=== PATIENT | female | born 1985 | race Caucasian/White ===

== ENCOUNTER 2017-11-18 14:42 | Emergency (ER) | payer MEDICAID ==
[~2017-11-18] VITALS: Ht 162.6 cm; Wt 76.5 kg
[~2017-11-18 14:42] MED LIST: FLUO20CA39 PO; LORA1TAB PO
[2017-11-18 14:49] VITALS: BP 120/62
[2017-11-18] MEDS ORDERED: LORazepam 1 MG tablet PO ONE (14:55)
== END 2017-11-18 15:11 | disposition home or self-care (01) ==
LOC: ER 14:42
DX: F41.9 Anxiety disorder, unspecified (principal); F20.9 Schizophrenia, unspecified; F17.200 Nicotine dependence, unspecified, uncomplicated; Z60.2 Problems related to living alone; Z56.0 Unemployment, unspecified; Z88.8 Allergy status to other drugs, medicaments and biological substances; Z79.899 Other long term (current) drug therapy
CPT/HCPCS: 99284

== ENCOUNTER 2022-07-11 10:13 | Emergency (ER) | payer MEDICAID ==
[~2022-07-11] VITALS: Ht 162.6 cm; Wt 54.5 kg
[2022-07-11] MEDS ORDERED: mupirocin 2% ointment 22GM TP STA (14:59)
[2022-07-11] MEDS ORDERED: LIDOcaine Viscous 15ml cup MM ONE (15:00)
[2022-07-11] MEDS ORDERED: chlorhexidine gluconate 15ml Cup****oral rinse MM ONE (15:00)
[2022-07-11] MEDS ORDERED: ibuprofen 200mg tablet PO ONE (15:00)
[2022-07-11] MEDS ORDERED: IBUP-1984 PO (15:12)
[2022-07-11 15:57] VITALS: BP 132/89
== END 2022-07-11 16:00 | disposition home or self-care (01) ==
LOC: ER 10:14
DX: S01.511A Laceration without foreign body of lip, initial encounter (principal); Z91.041 Radiographic dye allergy status; Z56.0 Unemployment, unspecified; W19.XXXA Unspecified fall, initial encounter; Y93.89 Activity, other specified; Y92.89 Other specified places as the place of occurrence of the external cause; Y99.8 Other external cause status
CPT/HCPCS: 99284

== ENCOUNTER 2023-04-18 08:10 | Emergency (ER) | payer MEDICAID ==
[~2023-04-18] VITALS: Ht 162.6 cm; Wt 63.6 kg
[2023-04-18 08:17] VITALS: BP 157/84; PULSE 103; RESP 16; TEMP 98.2; O2SAT 100
== END 2023-04-18 08:20 | disposition left against medical advice (07) ==
LOC: ER 08:11
DX: R56.9 Unspecified convulsions (principal); Z53.21 Procedure and treatment not carried out due to patient leaving prior to being seen by health care provider
CPT/HCPCS: 99281

== ENCOUNTER 2023-04-18 12:48 | Emergency (ER) | payer MEDICAID | END 2023-04-18 13:23 | disposition left against medical advice (07) | LOC: ER 12:48 | DX: F15.90 Other stimulant use, unspecified, uncomplicated (principal); Z53.21 Procedure and treatment not carried out due to patient leaving prior to being seen by health care provider ==

== ENCOUNTER 2023-11-21 14:06 | Emergency (ER) | payer MEDICAID ==
[~2023-11-21] VITALS: Ht 165.1 cm; Wt 68.2 kg
[~2023-11-21 14:06] MED LIST changes: -FLUO20CA39 PO; -LORA1TAB PO; +NO HOME MEDS
[2023-11-21 14:11] VITALS: BP 125/85; PULSE 113; RESP 18; TEMP 97.8; O2SAT 97
== END 2023-11-21 19:03 | disposition left against medical advice (07) ==
LOC: ER 14:07
DX: K62.89 Other specified diseases of anus and rectum (principal); Z53.21 Procedure and treatment not carried out due to patient leaving prior to being seen by health care provider
CPT/HCPCS: 99281

== ENCOUNTER 2024-03-16 21:30 | Emergency (ER) | payer MEDICAID ==
[~2024-03-16] VITALS: Ht 162.6 cm; Wt 70.0 kg
[2024-03-16] MEDS: LORazepam 2 mg/ml vial IV ONE (22:11)
[2024-03-16] MEDS: normal saline 1000ml 1,000 ML IV ONE (22:11)
[2024-03-16 22:41] LABS: ALANINE AMINOTRANSFERASE 23 U/L (12-78); ALKALINE PHOSPHATASE 58 IU/L (46-116); ASPARTATE AMINO TRANSFERASE 29 U/L (10-37); BILIRUBIN,TOTAL 0.3 MG/DL (0.1-1.0); CHLORIDE 105 MMOL/L (99-107); CREATINE KINASE 261 U/L (26-192); POTASSIUM 3.6 MMOL/L (3.5-5.1); SODIUM 139 MMOL/L (135-145); TOTAL PROTEIN 7.6 G/DL (6.4-8.2)
[2024-03-16 22:58] LABS: BASOPHILS # (AUTO) 0.1 X10'3 (0-0.2); LYMPHOCYTES # (AUTO) 1.4 X10'3 (1.1-4.8); MEAN CORPUSCULAR VOLUME 80.9 FL (78-98); MEAN PLATELET VOLUME 7.5 FL (7.4-10.4); MONOCYTES # (AUTO) 0.5 X10'3 (0-0.9)
[2024-03-16 22:59] LABS: BASOPHILS % (AUTO) 0.6 % (0-1); EOSINOPHILS # (AUTO) 0.1 X10'3 (0-0.9); EOSINOPHILS % (AUTO) 0.7 % (0-6); HEMATOCRIT 34.3 % (35.0-45.0); HEMOGLOBIN 11.2 g/dl (12.0-16.0); MEAN CORPUSCULAR HEMOGLOBIN 26.4 PG (27.0-31.0); MEAN CORPUSCULAR HGB CONC 32.6 g/dL (33.0-36.5); MONOCYTES % (AUTO) 5.9 % (2-12); NEUTROPHILS # (AUTO) 6.8 X10'3 (1.8-7.7); NEUTROPHILS % (AUTO) 76.8 % (42-75); RED BLOOD COUNT 4.24 X10'6 (4.20-5.60); RED CELL DISTRIBUTION WIDTH 17.8 % (11.5-14.5); WHITE BLOOD COUNT 8.9 X10'3 (4.5-11.0)
[2024-03-16 23:05] LABS: ALBUMIN 3.8 G/DL (3.4-5.0); ANION GAP 17 (8-16); BLOOD UREA NITROGEN 12 MG/DL (7-18); CALCIUM 9.1 MG/DL (8.5-10.1); CREATININE 0.75 MG/DL (0.40-0.90); GLUCOSE 80 MG/DL (70-104); TOTAL CARBON DIOXIDE 17.4 MMOL/L (24-32); eCRCL 85 ML/MIN; eGFR 85 ML/MIN
[2024-03-17] MEDS ORDERED: KEP500T PO (01:19)
[2024-03-17] MEDS: levetiracetam inj 1,000 MG in normal saline 100ml IV soln 100 ML IV ONE (02:18)
[2024-03-17 07:02] VITALS: BP 122/92; PULSE 90; RESP 16; TEMP 98.6; O2SAT 97
== END 2024-03-17 07:06 | disposition home or self-care (01) ==
LOC: ER 21:31
DX: G40.802 Other epilepsy, not intractable, without status epilepticus (principal); R45.1 Restlessness and agitation; F41.9 Anxiety disorder, unspecified; F20.9 Schizophrenia, unspecified; F17.200 Nicotine dependence, unspecified, uncomplicated; I49.8 Other specified cardiac arrhythmias; Z56.0 Unemployment, unspecified; Z60.2 Problems related to living alone
CPT/HCPCS: 36415; 80053; 82550; 85025; 93005; 96361; 96374; 96375; 99285; J1953; J2060; J7030

== ENCOUNTER 2024-08-22 06:03 | Emergency (ER) | payer MEDICAID ==
[~2024-08-22] VITALS: Ht 157.5 cm; Wt 60.9 kg
[~2024-08-22 06:03] MED LIST changes: +KEP500T PO
[2024-08-22 06:07] VITALS: BP 160/100; PULSE 91; RESP 20; TEMP 97.7; O2SAT 100
== END 2024-08-22 08:21 | disposition left against medical advice (07) ==
LOC: ER 06:03
DX: R56.9 Unspecified convulsions (principal); Z53.21 Procedure and treatment not carried out due to patient leaving prior to being seen by health care provider; Z88.1 Allergy status to other antibiotic agents
CPT/HCPCS: 82948

== ENCOUNTER 2024-09-25 15:27 | Emergency (ER) | payer MEDICAID ==
[~2024-09-25] VITALS: Ht 160 cm; Wt 54.5 kg
[2024-09-25] MEDS: ziprasidone IM 20mg inj **IM only IM ONE (16:17)
[2024-09-25 16:20] LABS: BASOPHILS # (AUTO) 0.1 X10'3 (0-0.2); BASOPHILS % (AUTO) 0.9 % (0-1); EOSINOPHILS # (AUTO) 0.1 X10'3 (0-0.9); EOSINOPHILS % (AUTO) 1.4 % (0-6); HEMATOCRIT 35.6 % (35.0-45.0); HEMOGLOBIN 11.3 g/dl (12.0-16.0); LYMPHOCYTES # (AUTO) 1.6 X10'3 (1.1-4.8); LYMPHOCYTES % (AUTO) 25.5 % (21-51); MEAN CORPUSCULAR HEMOGLOBIN 25.9 PG (27.0-31.0); MEAN CORPUSCULAR HGB CONC 31.8 g/dL (33.0-36.5); MEAN CORPUSCULAR VOLUME 81.6 FL (78-98); MEAN PLATELET VOLUME 7.2 FL (7.4-10.4); MONOCYTES # (AUTO) 0.6 X10'3 (0-0.9); MONOCYTES % (AUTO) 8.9 % (2-12); NEUTROPHILS # (AUTO) 3.9 X10'3 (1.8-7.7); NEUTROPHILS % (AUTO) 63.3 % (42-75); PLATELET COUNT 341 X10'3 (140-440); RED BLOOD COUNT 4.37 X10'6 (4.20-5.60); RED CELL DISTRIBUTION WIDTH 18.3 % (11.5-14.5); WHITE BLOOD COUNT 6.2 X10'3 (4.5-11.0)
[2024-09-25 16:41] LABS: ALBUMIN 3.6 G/DL (3.4-5.0); ANION GAP 5 (8-16); BLOOD UREA NITROGEN 20 MG/DL (7-18); BUN/CREATININE RATIO 37.7 (10.0-20.0); CALCIUM 8.8 MG/DL (8.5-10.1); CHLORIDE 105 MMOL/L (99-107); CREATININE 0.53 MG/DL (0.40-0.90); GLUCOSE 81 MG/DL (70-104); POTASSIUM 3.8 MMOL/L (3.5-5.1); SODIUM 140 MMOL/L (135-145); THYROID STIMULATING HORMONE 1.02 ulU/ml (0.34-4.50); TOTAL CARBON DIOXIDE 30.4 MMOL/L (24-32); eCRCL 116 ML/MIN; eGFR > 90 ML/MIN
[2024-09-25 16:44] LABS: ETHANOL < 10 MG/DL (<10)
[2024-09-26] MEDS: LORazepam 1 MG tablet PO ONE (00:23)
[2024-09-26] MEDS: ziprasidone IM 20mg inj **IM only IM ONE (06:47)
[2024-09-26 07:03] LABS: URINE HCG NEGATIVE (NEG)
[2024-09-26 07:07] LABS: URINE AMPHETAMINE SCREEN NEGATIVE (Neg); URINE BARBITUATE SCREEN NEGATIVE (Neg); URINE BENZODIAZEPINES SCREEN NEGATIVE (Neg); URINE CANNABINOID SCREEN POSITIVE (Neg); URINE COCAINE SCREEN NEGATIVE (Neg); URINE METHADONE SCREEN NEGATIVE (Neg); URINE OPIATE SCREEN NEGATIVE (Neg); URINE PHENCYCLIDINE SCREEN NEGATIVE (Neg)
[2024-09-26 07:11] LABS: BILIRUBIN,URINE NEGATIVE (Neg); CLARITY,URINE CLEAR (Clear); COLOR,URINE YELLOW (Yellow); GLUCOSE, URINE NEGATIVE (Neg); KETONES,URINE NEGATIVE (Neg); LEUKOCYTE ESTERASE ,URINE NEGATIVE (Neg); NITRITES, URINE NEGATIVE (Neg); OCCULT BLOOD,URINE NEGATIVE (Neg); PH,URINE 5.5 (4.8-8.0); PROTEIN,URINE NEGATIVE (Neg); UROBILINOGEN,URINE 0.2 E.U/dL (0.2-1.0)
[2024-09-26 07:28] LABS: UA COLLECTION TYPE CLN CATCH MIDSTREAM
[2024-09-26] MEDS: haloperidol lactate 5mg/ml inj IM ONE ×2 (11:40→18:38)
[2024-09-26] MEDS: LORazepam 2 mg/ml vial IM ONE ×2 (11:41→18:39)
[2024-09-26] MEDS ORDERED: NALO4SPR22 (12:40)
[2024-09-26] MEDS ORDERED: DIVA-52 PO (12:40)
[2024-09-26] MEDS ORDERED: OLAN10TA73 PO (12:40)
[2024-09-26] MEDS ORDERED: OLAN10TA3 PO (14:11)
[2024-09-26] MEDS: diphenhydrAMINE 50 mg/ml inj IM ONE (18:39)
[2024-09-26] MEDS: olanzapine 10mg tablet PO SCH (20:54)
[2024-09-26] MEDS: divalproex sodium 500mg tablet.DR PO SCH (20:55)
[2024-09-27 00:35] LABS: ALANINE AMINOTRANSFERASE 26 U/L (12-78); ALBUMIN 3.2 G/DL (3.4-5.0); ALKALINE PHOSPHATASE 63 IU/L (46-116); ANION GAP 4 (8-16); ASPARTATE AMINO TRANSFERASE 23 U/L (10-37); BILIRUBIN,TOTAL 0.3 MG/DL (0.1-1.0); BLOOD UREA NITROGEN 22 MG/DL (7-18); BUN/CREATININE RATIO 33.3 (10.0-20.0); CALCIUM 8.7 MG/DL (8.5-10.1); CHLORIDE 105 MMOL/L (99-107); CREATININE 0.66 MG/DL (0.40-0.90); GLUCOSE 90 MG/DL (70-104); POTASSIUM 4.1 MMOL/L (3.5-5.1); SODIUM 141 MMOL/L (135-145); TOTAL CARBON DIOXIDE 31.8 MMOL/L (24-32); TOTAL PROTEIN 6.5 G/DL (6.4-8.2); eCRCL 93 ML/MIN; eGFR > 90 ML/MIN
[2024-09-27] MEDS: olanzapine 10mg tablet PO SCH (08:57)
[2024-09-27 10:21] LABS: VALPROATE 10 UG/ML (50-100)
[2024-09-27] MEDS: ziprasidone IM 20mg inj **IM only IM ONE (18:55)
[2024-09-27] MEDS: LORazepam 2 mg/ml vial IM ONE (18:55)
[2024-09-28] MEDS: diphenhydrAMINE 50 mg/ml inj IM ONE (14:06)
[2024-09-28] MEDS: haloperidol lactate 5mg/ml inj IM ONE (14:07)
[2024-09-28] MEDS: LORazepam 2 mg/ml vial IM ONE (14:07)
[2024-09-29] MEDS ORDERED: OLANZapine **IM** 10 mg inj. IM ONE (11:00)
[2024-09-29] MEDS: diphenhydrAMINE 50 mg/ml inj IM ONE (11:25)
[2024-09-29] MEDS: haloperidol lactate 5mg/ml inj IM ONE (11:26)
[2024-09-29] MEDS: LORazepam 2 mg/ml vial IM ONE (11:26)
[2024-09-29 21:13] VITALS: BP 118/76; PULSE 86; RESP 18; TEMP 98.3; O2SAT 96
== END 2024-09-29 21:17 ==
LOC: ER 15:28
DX: F29 Unspecified psychosis not due to a substance or known physiological condition (principal); F20.9 Schizophrenia, unspecified; F41.9 Anxiety disorder, unspecified; Z20.822 Contact with and (suspected) exposure to COVID-19
CPT/HCPCS: 36415; 80048; 80053; 80164; 80305; 80320; 81003; 81025; 84443; 85025; 87811; 96372; 99285; J1200; J1630; J2060; J3486; 99283